=== PATIENT | female | born 1970 | race Caucasian/White ===

== ENCOUNTER 2025-01-21 13:23 | Emergency (ER) | payer OTHER, SELFPAY ==
[2025-01-21 13:34] VITALS: BP 133/89; PULSE 81; RESP 20; TEMP 36.6; O2SAT 99
--- NOTE | 2025-01-21 14:00 | ED_ITS ---
HPI - Eye Problem General Chief complaint: Eye Problems Stated complaint: EYE REDNESS Time Seen by Provider: 01/21/25 14:00 Source: patient Mode of arrival: ambulatory Limitations: no limitations History of Present Illness HPI Narrative: 54-year-old female presents with left eye redness, clear drainage starting this morning. Patient reports postnasal drainage, sinus congestion for the past week, worse to left side. Denies cough. Afebrile. Started Claritin this morning. All systems reviewed and negative except as noted above. Related Data Home Medications ?Medication ?Instructions ?Recorded ?Confirmed ?Last Taken ?Type labetalol 100 mg tablet mg 01/21/25 Unknown History rosuvastatin 5 mg tablet mg 01/21/25 Unknown History tirzepatide 7.5 mg/0.5 mL mg subcut 01/21/25 Unknown History subcutaneous pen injector (Mounjaro) Allergies Allergy/AdvReac Type Severity Reaction Status Date / Time Penicillins Allergy Mild RASH Verified 01/21/25 13:39 Review of Systems Review of Systems: CONSTITUTIONAL: Denies fever, chills, or sweats. EYES: Denies visual changes reports left eye redness, clear discharge. ENT: Reports rhinorrhea, congestion, postnasal drainage, left sinus pressure. Denies sore throat, or otalgia. CARDIOVASCULAR: Denies chest pain, palpitations, or edema. RESPIRATORY: Denies cough or dyspnea. GASTROINTESTINAL: Denies abdominal pain, nausea, vomiting, or diarrhea. GENITOURINARY: Denies dysuria or hematuria. SKIN: Denies rash or itching. MUSCULOSKELETAL: Denies back pain, joint pain, or myalgia. NEUROLOGIC: Denies headache, numbness, or weakness. PSYCHIATRIC: Denies anxiety or depression. All other systems reviewed are negative, except as documented in HPI. PMFSH Comments At time of signature, agree with nursing past medical, surgical, social and family history. There is no relevant family history pertinent to the presenting complaint. Exam 2 Narrative: GENERAL: This is a well-nourished, well-developed patient, in no apparent distress. HEAD: normocephalic, atraumatic. EYES: PERRL. Sclera and conjunctiva left eye erythematous with clear drainage. Right eye normal Vision is grossly intact. EARS: External ears normal, auditory canals clear and without drainage, TMs normal without perforation. Hearing grossly intact. NOSE: External nose normal with clear nasal drainage, mild erythema to bilateral nares THROAT: Mucous membranes moist, erythema with postnasal drainage. NECK: Neck supple, non-tender without lymphadenopathy, masses or thyromegaly. CARDIOVASCULAR: Regular rate and rhythm without murmurs, gallops, or rubs. RESPIRATORY: Clear to auscultation. Breath sounds equal bilaterally. No wheezes, rales, or rhonchi. SKIN: warm, Dry, intact with no suspicious lesions or rash, good texture and turgor. NEURO: awake, alert, and oriented to person, place and time. There were no obvio us focal neurologic abnormalities. EXTREMITIES: No joint tenderness, effusion, or edema noted. Course Course Level of Care: Express Care Visit Vital Signs Vital signs: Vital Signs Temperature 36.6 C 01/21/25 13:34 Pulse Rate 81 01/21/25 13:34 Respiratory Rate 20 01/21/25 13:34 Blood Pressure 133/89 01/21/25 13:34 Pulse Oximetry 99 01/21/25 13:34 Oxygen Delivery Room Air 01/21/25 13:34 Temperature 36.6 C 01/21/25 13:34 Pulse Rate 81 01/21/25 13:34 Respiratory Rate 20 01/21/25 13:34 Blood Pressure 133/89 01/21/25 13:34 Pulse Oximetry 99 01/21/25 13:34 Oxygen Delivery Room Air 01/21/25 13:34 Reviewed MDM - Eye Problem MDM Narrative Medical decision making narrative: Treat patient with antibiotic for bacterial sinusitis due to patient's symptoms and exam findings. After conjunctivitis to left eye most likely allergic or viral but will treat with antibiotic eyedrops as precaution. Patient denies vision changes. No pain to left eye. His glasses, no contacts. patient is non-toxic appearing and is in no distress. Patient is appropriate for outpatient treatment and follow-up. Discharge Plan Discharge Clinical Impression: Acute bacterial sinusitis, Acute bacterial conjunctivitis of left eye Patient Disposition: Home Condition: Stable Instructions: Antibiotic Form, Sinusitis (ED), Conjunctivitis (ED) Additional Instructions: Take antibiotic as prescribed until gone. Continue taking Claritin daily. Purchase [id number] pseudoephedrine and take as directed on packaging. This medication is found by the pharmacy counter. Place antibiotic eyedrops as prescribed. Wash hands before and after placing eyedrops. Drink at least 64 oz of water a day. Follow-up with your doctor symptoms are not improving. Patient Language: Ivorian Prescriptions: New doxycycline hyclate 100 mg capsule 100 mg PO BID 7 Days Qty: 14 0RF polymyxin B sulf-trimethoprim 10,000 unit- 1 mg/mL drops 1 drp LEFT EYE Q3H 7 Days Qty: 10 0RF Rx Instructions: while awake; do not exceed 6 doses in 24 hours No Action labetalol 100 mg tablet rosuvastatin 5 mg tablet Mounjaro 7.5 mg/0.5 mL pen injector SUBCUT Follow-up/Referrals: Neeru,Omar Moise MD [Primary Care Provider] - Time of Disposition: 14:08
== END 2025-01-21 14:18 | disposition home or self-care (01) ==
PROVIDERS: Emergency Provider Nurse Practitioner Family; PCP Internal Medicine
DX: J01.90 Acute sinusitis, unspecified (principal); H10.32 Unspecified acute conjunctivitis, left eye; I10 Essential (primary) hypertension; E78.00 Pure hypercholesterolemia, unspecified
CPT/HCPCS: 99203; G0463